=== PATIENT | male | born 1975 | race Asian ===

== ENCOUNTER 2018-06-03 09:31 | Emergency (ER) | payer BC ==
[~2018-06-03] VITALS: Ht 182.9 cm; Wt 100.2 kg
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
--- NOTE | 2018-06-03 10:00 | NUR ---
DR DELGADO AT BEDSIDE
[2018-06-03] MEDS ORDERED: HYDROCODONE/APAP 5/325MG 1 EACH TABLET ONE (10:15)
--- NOTE | 2018-06-03 10:15 | NUR ---
CABLE TELEVISION ACCESS COORDINATOR AT BEDSIDE.
[2018-06-03] MEDS ORDERED: HYDROCODONE/APAP 5/325MG 1 EACH TABLET PO ONE (10:30)
[2018-06-03] MEDS ORDERED: LISI10TA5 PO (11:20)
[2018-06-03] MEDS ORDERED: LISINOPRIL (10MG) 10 MG TABLET PO SCH (11:30)
--- NOTE | 2018-06-03 11:37 | NUR ---
Patient discharged to home in stable condition. Written and verbal after care instructions given. Patient verbalizes understanding of instruction.
[2018-06-03 11:39] VITALS: BP 150/102
== END 2018-06-03 11:42 | disposition home or self-care (01) ==
LOC: ER 09:33
DX: S20.212A Contusion of left front wall of thorax, initial encounter (principal); S30.1XXA Contusion of abdominal wall, initial encounter; S70.02XA Contusion of left hip, initial encounter; S60.411A Abrasion of left index finger, initial encounter; M25.512 Pain in left shoulder; I10 Essential (primary) hypertension; Z79.899 Other long term (current) drug therapy; V19.88XA Pedal cyclist (driver) (passenger) injured in other specified transport accidents, initial encounter; Y93.I9 Activity, other involving external motion; Y92.89 Other specified places as the place of occurrence of the external cause; Y99.8 Other external cause status
CPT/HCPCS: 71045-TC; 72170-TC; 73030-TC; 73130-TC; 73502